=== PATIENT | female | born 1985 | race African-American/Black ===

== ENCOUNTER → 2018-06-11 10:33 | Outpatient (CLI) | payer OTHER, SELFPAY ==
[2018-06-11 10:48] LABS: RBC Urine None Seen (0-5/HPF); WBC Urine None Seen (0-5/HPF)
[2018-06-11 11:30] LABS: Add Manual Diff / Slide Review NO; Basophils Percent Auto 0.6 % (0-2); Eosinophils Percent Auto 0.8 % (2-4); Hematocrit 39.1 % (36-46); Lymphocytes Percent Auto 24.4 % (25-40); Mean Corpuscular HGB Conc 33.4 % (30-36); Mean Corpuscular Hemoglobin 27.1 PG (26-34); Mean Corpuscular Volume 81.1 fL (80-100); Monocytes Percent Auto 7.4 % (3-14); Neutrophils Absolute Auto 5100 /uL (3000-5900); Neutrophils Percent Auto 66.8 % (50-75); Platelet Count 254 X10^3/uL (150-400); Red Blood Cell Count 4.82 X10^6/uL (4.0-5.2); Red Cell Distribution Width 13.6 % (11.6-14.8); White Blood Cell Count 7.6 X10^3/uL (4.5-11.0)
[2018-06-11 12:18] LABS: Appearance Urine UA CLEAR; Bilirubin Urine UA NEGATIVE (NEGATIVE); Color Urine UA YELLOW; Glucose Urine UA NEGATIVE (Normal); Ketones Urine UA NEGATIVE (NEGATIVE); Leukocyte Esterase Urine UA NEGATIVE (NEGATIVE); Nitrite Urine UA Negative (Negative); Occult Blood Urine UA NEGATIVE (Negative); Protein Urine UA NEGATIVE (Negative); Urobilinogen Urine UA 0.2 E.U./dL (0.2)
[2018-06-11 12:36] LABS: Squamous Epithelial Cell Urine 1-5 /HPF
[2018-06-11 12:37] LABS: Bacteria Urine Occasional (0-1); Culture Indicated Urine Cult Not Indicated
== END ==
PROVIDERS: Visit Provider Obstetrics & Gynecology
DX: D25.9 Leiomyoma of uterus, unspecified (principal)
CPT/HCPCS: 36415; 81001; 85025; 86850; 86900; 86901

== ENCOUNTER 2018-06-13 11:23 | Inpatient (IN) | payer OTHER, SELFPAY ==
[2018-06-06 10:38] VITALS: BMI 32.6
[2018-06-13] VITALS (16 sets, daily range): BP systolic 107–123; BP diastolic 67–86; PULSE 56–88; RESP 10–19; TEMP 36.2–37.3; O2SAT 96–100; BMI 32.6
--- NOTE | 2018-06-13 | PATH_ITS ---
[facility] Accession Number: [id number] . 01 Material submitted: . UTERUS AND BILATERAL FALLOPIAN TUBES . 02 Diagnosis: Uterus and Bilateral Fallopian Tubes, Laparoscopic Assisted Vaginal Hysterectomy with Bilateral Salpingectomy (Weight 231 grams): Cervix with no diagnostic abnormality. Endocervix with no diagnostic abnormality. Proliferative endometrium; negative for glandular hyperplasia, cytologic atypia, and malignancy. Myometrium with no significant diagnostic abnormality. Serosa with multiple subserosal leiomyomas with diffuse hyalinization and calcification (2.5-3.5 cm in greatest dimension). Fallopian tubes x2 with no significant histomorphologic abnormality. [facility]/06/16/2018 . 02 Electronically signed: . Tonya Melendez MD, Pathologist NPI- [id number] . 01 Gross description: . Received in formalin, labeled uterus, bilateral fallopian tubes, is a uterus (231 grams, 4.8 cm AP, 11.2 cm SI, 6.2 cm ML) with attached fimbriated fallopian tubes (tube #1: length-6.8 cm, diameter-0.6 cm; tube #2: length-6.5 cm, diameter-0.5 cm). The ovaries are absent. The specimen cannot be oriented as to anterior and posterior. The cervix (3.2 cm AP, 4.0 cm ML) has a transverse os and patent endocervical canal. The endometrium (average thickness-0.1 cm) is gaston-pink smooth and flat. The myometrium is gaston-white and unremarkable. The serosa is gaston and contains multiple méndez-yellow solid firm focally mineralized subserosal nodules (2.5 x 1.5 x 1.5 cm-3.5 x 3.3 x 3.0 cm). The fallopian tubes have dark purple smooth and shiny serosa and gaston unremarkable lumens. Section code: (A1) cervix; (A2) cervix, opposite side; (A3-A5) endomyometrium and subserosal nodules, correspondence representative; (A6-A8) endomyometrium and subserosal nodules, opposite side, correspondence representative; (A9) fallopian tube #1, correspondence representative serial sections; (A10) fimbria #1, bivalved, entirely submitted; (A11) fallopian tube #2, correspondence representative serial sections; (A12) fimbria #2, bivalved, entirely submitted. ([id number]) /[facility] . 02 Pathologist provided ICD-10: D25.9 . 02 CPT . 172488 Performed at: 01 [facility] [address] [id number] MD Amaury Norris MD Phone: [phone] Performed at: 02 [facility] [address] [place], [place] [id number] MD Ryan Vergara MD Phone: [phone]
[2018-06-13] MEDS: LACTATED RINGERS 1,000 ML 42 ML IV (11:50)
--- NOTE | 2018-06-13 12:20 | SUR.PREOP ---
Pt ready for OR at this time. PIV in place, Nursing admission data base has been completed and SECURITY SCREENER has seen Pt. and children at the bedside. Awaiting Anesthesia and MD bedside assessment prior to taking Pt into OR Suite.
--- NOTE | 2018-06-13 12:28 | SUR.OPER ---
Lithotomy on padded OR bed. [place] Pad Positioner under torso. Head on pillow, arms padded and tucked at sides. Legs secured in padded yellow fins stirrups.
--- NOTE | 2018-06-13 12:41 | PM.PREOP ---
Pre-operative Note Interval Note Pre-op Check: Yes History & Physical Reviewed by Physician Changes: No
[2018-06-13] MEDS: CEFAZOLIN 2 GM/100 ML FROZ.PIGGY IV (12:45)
[2018-06-13] MEDS: BUPIVACAINE 0.25% (PF) VIAL 30 ML INJ (13:47)
[2018-06-13] MEDS: LIDOCAINE 1% W/EPI INJ 20 ML INJ (13:49)
[2018-06-13] MEDS: HYDROMORPHONE 2 MG INJ 0.5 MG IV ×2 (15:46→15:55)
--- NOTE | 2018-06-13 15:50 | SUR.PHASEI ---
pt gradually awake, co pain medicated with dilaudid.
--- NOTE | 2018-06-13 16:02 | SUR.PHASEI ---
1555 report attempted, rn not available awaiting call back.
--- NOTE | 2018-06-13 16:08 | SUR.PHASEI ---
called report again, rn now available, report given, pt transported [facility].
--- NOTE | 2018-06-13 16:27 | SUR.PHASEI ---
pt left ihn room under the care of trav quarles
--- NOTE | 2018-06-13 16:49 | PM.GYNOP.1 ---
Operative Date/Time/Diagnoses Date of procedure: 06/13/18 Time of procedure: 12:30 Pre-op diagnosis: Symptomatic fibroid uterus Post-op diagnosis: same Procedure: Procedures Operation Date: 06/13/18 12:30 Actual Procedures Side Surgeon p Laparoscopic Assisted Vag Hysterectomy w/Bilat Salpingectomy Raegan Boykin MD s Poss Total Abdominal Hysterectomy w/Bilateral Salpingectomy Raegan Boykin MD Indications: The patient is a 32-year-old 6 para 2 abortus 4 female here for hysterectomy for management of a symptomatic fibroid uterus. She recently transferred from [place] and was planning hysterectomy there but could not have surgery due to insurance concerns. Her primary concerns have been heavy menstrual cycles, with the 1st 2 days requiring tampon changes every 2 hr. She also has cramps with an intensity of 6/10, treated with 1 Naprosyn daily, and she notes lower abdominal pressure and pain, which seems to be exacerbated as her menstrual cycle approaches. She has completed her childbearing and desires hysterectomy for management of her symptomatic fibroid uterus. Pelvic ultrasound noted a midline fundal fibroid measuring 2.8 x 3.4 x 2.7 cm; a right lower segment fibroid measuring 4 x 3.5 x 3.5 cm; and a subserosal midbody fibroid measuring 2.5 x 2.5 x 2.3 cm the latter. The latter projects anterior on transabdominal images and posterior on the transvaginal images. The ovaries were notable for a 2 cm simple cyst on the right ovary. There were no other adnexal masses. After reviewing her management options for fibroid uterus, the patient desired hysterectomy. The risks, benefits, limitations, alternatives, and expectations of surgery were discussed, and the consent was reviewed and signed prior to the day of surgery. Surgeon: Raegan Boykin Amusement Ride Operator: Erlin Barone Anesthesia Type: General and Local (0.25 arcain, plain; 0.25 arcaine with epi) Operative Notes Findings: Exam under anesthesia: Enlarged fibroid uterus is palpable on bimanual exam. Multiple well-circumscribed masses were noted. A small amount of uterine descent was noted during bimanual exam. No adnexal masses were palpable. Operative findings: The uterus was enlarged with multiple fibroids. There appeared to be an intramural fibroid at the fundus measuring approximately 3-4 cm. There were 2 pedunculated, subserosal fibroids at the posterior aspect of the uterus measuring 2-3 cm each, 1 situated more to the right than the 1st. There was also a subserosal, pedunculated 2 cm fibroid anterior to the uterus, just above the bladder flap, which was adhesed to the peritoneum anteriorly. The ovaries and fallopian tubes were normal in appearance bilaterally. There was also a filmy adhesion of the right ascending colon to the right flank peritoneum. There was no endometriosis or other adhesions and the remainder of the abdominal survey was normal. The appendix is not seen. Closure Type: primary Specimen(s): left tube, right tube, uterus and other (Cervix) Applied: catheter Estimated blood loss (mL): 300 Blood products transfused: none Procedure in detail: The patient was taken to the operating room, where general endotracheal anesthesia was administered without complications. The patient was placed into the low dorsal lithotomy position with her lower extremities in Yellofin stirrups. Exam under anesthesia was then performed with the findings noted above. Although minimal descent of the uterus was noted, the decision was made to proceed with a laparoscopic-assisted vaginal hysterectomy initially, and then proceed with abdominal hysterectomy if needed. Perineum, vagina, and abdomen were then prepped and draped in a sterile fashion. A Oliver catheter was then placed. Procedure time-out was then performed. Attention was first turned to the perineum for placement of the uterine manipulator. A sterile bivalve speculum was inserted into the vagina, then the anterior lip of the cervix was grasped with a single-tooth tenaculum. A ZUMI uterine manipulator was then advanced without need for cervical dilation. The balloon was inflated, then the tenaculum and speculum removed from the vagina. Local anesthetic was then injected infraumbilically using 0.25% Marcaine plain. A vertical skin incision was then made with a scalpel below the umbilicus measuring approximately 7 mm in length. The abdominal wall was then grasped and tented up while a Veress needle was inserted through the incision. Saline drop test was suggestive of intraperitoneal placement. Carbon dioxide gas insufflation was then performed with appropriate opening pressures noted. After instilling approximately 2 L of carbon dioxide, a 5 mm 0 degree laparoscope within a 5 mm trocar was inserted through the anterior layers of the abdominal wall using Optiview technique. The abdomen and pelvis were visualized with the findings as noted above. The patient was placed into Trendelenburg position for better visualization. A second and third trocar was inserted at the patient's lower quadrants. These were done by first instilling local anesthetic, then incising the skin and inserting a 5 mm trocar under direct visualization using the laparoscopic. An atraumatic grasper was then utilized to manipulate the tissue and improve visualization throughout the pelvis. Attention was 1st turned to dissection of the adhesion from the anterior fibroid to the anterior peritoneum. This was dissected using the PlasmaKinetic. Gentle traction was then applied on the left distal fallopian tube which was pulled medially and superiorly. The left tubo-ovarian pedicle was then cross-clamped, cauterized, and cut using the Olympus PlasmaKinetic, and the left mesosalpinx dissected to separate the left tube from the ovary. The left round ligament was then cross clamped, cauterized, and cut. Residual bleeding was controlled with Bovie cautery. The anterior leaf of the broad ligament was undermined with the PlasmaKinetic and the left aspect of the bladder flap created using Bovie cautery. The left utero-ovarian pedicle was then cross clamped, cauterized, and cut, freeing the left ovary from the uterus. Some residual para uterine tissue was freed with Bovie cautery and gentle traction, skeletonizing the left uterine vessels. The left uterine vein and artery were then cross clamped, cauterized, and cut, and additional cautery applied as needed to achieve hemostasis. Attention was then turned to the patient's right adnexa. The right distal fallopian tube was grasped and tented up while the right tubo-ovarian pedicle was cross clamped, cauterized, and cut. This incision was then extended and medially across the right mesosalpinx. The right round ligament was then cross clamped, cauterized, and cut and the right anterior leaf of the broad ligament was undermined with the PlasmaKinetic to create the right side of the bladder flap using Bovie cautery. This incision was extended to the midline, meeting the bladder dissection from the left side. The right utero-ovarian pedicle was cross clamped, cauterized, and cut, freeing the right ovary from the uterus. The right uterine vessels were then skeletonized, cross clamped cauterized, and cut. Additional cautery was applied as needed to achieve hemostasis. The pelvis was then irrigated and suctioned. Once hemostasis was ensured, attention was turned to the perineum for the vaginal portion of the case. Instruments were removed from the abdomen, leaving the trocars in place. The majority of the carbon dioxide gas was allowed to escape. The uterine manipulator was removed. A sterile weighted speculum was placed in the posterior vagina and a Swanton placed in the anterior vagina. The cervix was grasped with double tooth tenaculum, then local with epinephrine was injected circumferentially for hemostasis. A circumferential incision was then made with Bovie cautery. Using blunt dissection with the stile ripsaw operator's finger, the vaginal mucosa was gently pushed back off the cervix, better visualizing the plane for the anterior and posterior peritoneal entry. The posterior peritoneum was grasped and incised sharply using Metzenbaum scissors. The Auvard speculum was then inserted into the posterior peritoneum. The anterior peritoneum was then bluntly entered using push with the stile ripsaw operator's finger and a moistened lap sponge. The Igor was then replaced. The left uterosacral ligament was cross clamped with a Mathew clamp then cut and suture ligated with an 0 Vicryl suture in a Mathew stitch fashion. This was tagged for later identification. This step was performed on the right uterosacral ligament clamped then cut and suture ligated with an 0 Vicryl suture. The right cardinal and inferior uterine vessels were then cross clamped with the Mathew clamp cut and suture ligated with an 0 Vicryl suture. This step was then performed on the patient's left cardinal and uterine vessels as well. The uterus and bilateral fallopian tubes were then removed through the vagina. The pedicles were inspected. Some residual bleeding at the cuff on the right was controlled with cautery. A bleeding pedicle on the right was secured with a [id number] suture of 0-Vicryl. Additionally, so bleeding at the posterior cuff was controlled with cautery. The peritoneum was then closed with a pursestring suture of 0 Vicryl, starting anteriorly at the bladder peritoneum, including both uterosacral ligaments and skiving across the posterior peritoneum. This was tied down, then the vagina was irrigated with sterile saline. The vaginal mucosa was then closed with serial [id number] sutures of 0 Vicryl. A sponge-stick was then placed into the vagina. Carbon dioxide gas was then reinflated into the abdomen, and the pelvis visualized. The cuff was irrigated and suctioned. Some residual bleeding anterior to and at the right aspect of the cuff was controlled with Bovie cautery. The ovaries were examined and no residual bleeding was noted. At this point the laparoscopic portion of the procedure was deemed complete. The carbon dioxide gas was allowed to escape and the trocars removed from the abdomen. The trocar sites were then closed with 4-0 Monocryl in a subcuticular fashion. Exofin skin glue was then applied. The sponge-stick was then removed from the vagina. At this point the procedure was deemed complete. Sponge, lap, and needle count were correct x3. The patient was subsequently awakened, extubated, and transferred to the PACU in stable condition. Complications: none Post-operative Condition: stable Disposition: Acute Care Plan for aftercare: See discharge instruction.
--- NOTE | 2018-06-13 17:08 | P.OP_ITS ---
Operative Date/Time/Diagnoses Date of procedure: 06/13/18 Time of procedure: 12:30 Pre-op diagnosis: Symptomatic fibroid uterus Post-op diagnosis: same Procedure: Procedures Operation Date: 06/13/18 12:30 Actual Procedures Side Surgeon p Laparoscopic Assisted Vag Hysterectomy w/Bilat Salpingectomy Raegan Boykin MD s Poss Total Abdominal Hysterectomy w/Bilateral Salpingectomy Raegan Boykin MD Indications: The patient is a 32-year-old 6 para 2 abortus 4 female here for hysterectomy for management of a symptomatic fibroid uterus. She recently transferred from [place] and was planning hysterectomy there but could not have surgery due to insurance concerns. Her primary concerns have been heavy menstrual cycles, with the 1st 2 days requiring tampon changes every 2 hr. She also has cramps with an intensity of 6/10, treated with 1 Naprosyn daily, and she notes lower abdominal pressure and pain, which seems to be exacerbated as her menstrual cycle approaches. She has completed her childbearing and desires hysterectomy for management of her symptomatic fibroid uterus. Pelvic ultrasound noted a midline fundal fibroid measuring 2.8 x 3.4 x 2.7 cm; a right lower segment fibroid measuring 4 x 3.5 x 3.5 cm; and a subserosal midbody fibroid measuring 2.5 x 2.5 x 2.3 cm the latter. The latter projects anterior on transabdominal images and posterior on the transvaginal images. The ovaries were notable for a 2 cm simple cyst on the right ovary. There were no other adnexal masses. After reviewing her management options for fibroid uterus, the patient desired hysterectomy. The risks, benefits, limitations, alternatives, and expectations of surgery were discussed, and the consent was reviewed and signed prior to the day of surgery. Surgeon: Raegan Boykin Furnace Repair Mechanic: Erlin Barone Anesthesia Type: General and Local (0.25* arcain, plain; 0.25* arcaine with epi) Operative Notes Findings: Exam under anesthesia: Enlarged fibroid uterus is palpable on bimanual exam. Multiple well-circumscribed masses were noted. A small amount of uterine descent was noted during bimanual exam. No adnexal masses were palpable. Operative findings: The uterus was enlarged with multiple fibroids. There appeared to be an intramural fibroid at the fundus measuring approximately 3-4 cm. There were 2 pedunculated, subserosal fibroids at the posterior aspect of the uterus measuring 2-3 cm each, 1 situated more to the right than the 1st. There was also a subserosal, pedunculated 2 cm fibroid anterior to the uterus, just above the bladder flap, which was adhesed to the peritoneum anteriorly. The ovaries and fallopian tubes were normal in appearance bilaterally. There was also a filmy adhesion of the right ascending colon to the right flank peritoneum. There was no endometriosis or other adhesions and the remainder of the abdominal survey was normal. The appendix is not seen. Closure Type: primary Specimen(s): left tube, right tube, uterus and other (Cervix) Applied: catheter Estimated blood loss (mL): 300 Blood products transfused: none Procedure in detail: The patient was taken to the operating room, where general endotracheal anesthesia was administered without complications. The patient was placed into the low dorsal lithotomy position with her lower extremities in Yellofin stirrups. Exam under anesthesia was then performed with the findings noted above. Although minimal descent of the uterus was noted, the decision was made to proceed with a laparoscopic-assisted vaginal hysterectomy initially , and then proceed with abdominal hysterectomy if needed. Perineum, vagina, and abdomen were then prepped and draped in a sterile fashion. A Oliver catheter was then placed. Procedure time-out was then performed. Attention was first turned to the perineum for placement of the uterine manipulator. A sterile bivalve speculum was inserted into the vagina, then the anterior lip of the cervix was grasped with a single-tooth tenaculum. A ZUMI uterine manipulator was then advanced without need for cervical dilation. The balloon was inflated, then the tenaculum and speculum removed from the vagina. Local anesthetic was then injected infraumbilically using 0.25% Marcaine plain. A vertical skin incision was then made with a scalpel below the umbilicus measuring approximately 7 mm in length. The abdominal wall was then grasped and tented up while a Veress needle was inserted through the incision. Saline drop test was suggestive of intraperitoneal placement. Carbon dioxide gas insufflation was then performed with appropriate opening pressures noted. After instilling approximately 2 L of carbon dioxide, a 5 mm 0 degree laparoscope within a 5 mm trocar was inserted through the anterior layers of the abdominal wall using Optiview technique. The abdomen and pelvis were visualized with the findings as noted above. The patient was placed into Trendelenburg position for better visualization. A second and third trocar was inserted at the patient' s lower quadrants. These were done by first instilling local anesthetic, then incising the skin and inserting a 5 mm trocar under direct visualization using the laparoscopic. An atraumatic grasper was then utilized to manipulate the tissue and improve visualization throughout the pelvis. Attention was 1st turned to dissection of the adhesion from the anterior fibroid to the anterior peritoneum. This was dissected using the PlasmaKinetic. Gentle traction was then applied on the left distal fallopian tube which was pulled medially and superiorly. The left tubo-ovarian pedicle was then cross-clamped, cauterized, and cut using the Olympus PlasmaKinetic, and the left mesosalpinx dissected to separate the left tube from the ovary. The left round ligament was then cross clamped, cauterized, and cut. Residual bleeding was controlled with Bovie cautery. The anterior leaf of the broad ligament was undermined with the PlasmaKinetic and the left aspect of the bladder flap created using Bovie cautery. The left utero-ovarian pedicle was then cross clamped, cauterized, and cut, freeing the left ovary from the uterus. Some residual para uterine tissue was freed with Bovie cautery and gentle traction, skeletonizing the left uterine vessels. The left uterine vein and artery were then cross clamped, cauterized, and cut, and additional cautery applied as needed to achieve hemostasis. Attention was then turned to the patient's right adnexa. The right distal fallopian tube was grasped and tented up while the right tubo-ovarian pedicle was cross clamped, cauterized, and cut. This incision was then extended and medially across the right mesosalpinx. The right round ligament was then cross clamped, cauterized, and cut and the right anterior leaf of the broad ligament was undermined with the PlasmaKinetic to create the right side of the bladder flap using Bovie cautery. This incision was extended to the midline, meeting the bladder dissection from the left side. The right utero-ovarian pedicle was cross clamped, cauterized, and cut, freeing the right ovary from the uterus. The right uterine vessels were then skeletonized, cross clamped cauterized, and cut. Additional cautery was applied as needed to achieve hemostasis. The pelvis was then irrigated and suctioned. Once hemostasis was ensured, attention was turned to the perineum for the vaginal portion of the case. Instruments were removed from the abdomen , leaving the trocars in place. The majority of the carbon dioxide gas was allowed to escape. The uterine manipulator was removed. A sterile weighted speculum was placed in the posterior vagina and a Igor placed in the anterior vagina. The cervix was grasped with double tooth tenaculum, then local with epinephrine was injected circumferentially for hemostasis. A circumferential incision was then made with Bovie cautery. Using blunt dissection with the desktop operator's finger, the vaginal mucosa was gently pushed back off the cervix, better visualizing the plane for the anterior and posterior peritoneal entry. The posterior peritoneum was grasped and incised sharply using Metzenbaum scissors. The Auvard speculum was then inserted into the posterior peritoneum. The anterior peritoneum was then bluntly entered using push with the desktop operator's finger and a moistened lap sponge. The [place] was then replaced. The left uterosacral ligament was cross clamped with a Mathew clamp then cut and suture ligated with an 0 Vicryl suture in a Mathew stitch fashion. This was tagged for later identification. This step was performed on the right uterosacral ligament clamped then cut and suture ligated with an 0 Vicryl suture. The right cardinal and inferior uterine vessels were then cross clamped with the Mathew clamp cut and suture ligated with an 0 Vicryl suture. This step was then performed on the patient's left cardinal and uterine vessels as well. The uterus and bilateral fallopian tubes were then removed through the vagina. The pedicles were inspected. Some residual bleeding at the cuff on the right was controlled with cautery. A bleeding pedicle on the right was secured with a [id number] suture of 0-Vicryl. Additionally, so bleeding at the posterior cuff was controlled with cautery. The peritoneum was then closed with a pursestring suture of 0 Vicryl, starting anteriorly at the bladder peritoneum, including both uterosacral ligaments and skiving across the posterior peritoneum. This was tied down, then the vagina was irrigated with sterile saline. The vaginal mucosa was then closed with serial [id number]-yn-[id number] sutures of 0 Vicryl. A sponge-stick was then placed into the vagina. Carbon dioxide gas was then reinflated into the abdomen, and the pelvis visualized. The cuff was irrigated and suctioned. Some residual bleeding anterior to and at the right aspect of the cuff was controlled with Bovie cautery. The ovaries were examined and no residual bleeding was noted. At this point the laparoscopic portion of the procedure was deemed complete. The carbon dioxide gas was allowed to escape and the trocars removed from the abdomen. The trocar sites were then closed with 4-0 Monocryl in a subcuticular fashion. Exofin skin glue was then applied. The sponge-stick was then removed from the vagina. At this point the procedure was deemed complete. Sponge, lap, and needle count were correct x3. The patient was subsequently awakened, extubated, and transferred to the PACU in stable condition. Complications: none Post-operative Condition: stable Disposition: Acute Care Plan for aftercare: See discharge instruction.
[2018-06-13] MEDS: OXYCODONE/ACETAMINOPHEN 5/325 TABLET 2 TAB PO ×3 (17:13→22:01)
[2018-06-13] MEDS: LACTATED RINGERS 1,000 ML 100 ML IV (17:14)
[2018-06-13] MEDS: KETOROLAC 30 MG/ML VIAL IV (18:51)
--- NOTE | 2018-06-13 19:41 | PC.NURSE ---
Addendum entered by Brooke Nielsen R.N. 06/13/18 19:45: 1830- Pain remains at 5-6/10, medicated with one tab percocet, and ketorolac 30mg IVP, effective. Original Note: Addendum entered by Brooke Nielsen R.N. 06/13/18 19:45: 1715- Pain 6/10, medicated with one tab percocet per pt request. Original Note: 1700- Pt arrived to room 206 from PACU via bed. A/O x3, 97% RA, LS clear, denies SOB. RFA LR @ 100. Pain 3/10 at this time. vincent pad clean no shadow drainage, 3 lap sites umbilicus, left/right side, dermabond CDI. and 2 sons in room. tolerating regular diet and fluids, denies nausea. Oliver patent and draining clear yellow urine. Call light in reach.
[2018-06-14] MEDS: OXYCODONE/ACETAMINOPHEN 5/325 TABLET 2 TAB PO (02:22)
[2018-06-14] MEDS: LACTATED RINGERS 1,000 ML 100 ML IV (03:05)
[2018-06-14 04:19] VITALS: BP 113/64; PULSE 54; RESP 18; TEMP 37.1; O2SAT 98
--- NOTE | 2018-06-14 04:45 | PC.NURSE ---
Addendum entered by Emani Miller R.N. 06/14/18 05:26: DC Oliver catheter at 0500. Pt tolerated well. Educated pt s/s of possible infection. Encouraged to continue oral fluid intake Original Note: shift note AOx3. RA 98%. Oliver clear and yellow. Peripad clean and dry, no drainage. Lap sites CDI. Pt reported pain of 4 at 0220. Provided pt 2 percocet tabs over tordal due to 2 percocet being effective earlier in evening for pt. Discussed alternative pain options with pt. Call light in reach.
[2018-06-14 05:41] LABS: Add Manual Diff / Slide Review NO; Basophils Percent Auto 0.3 % (0-2); Eosinophils Percent Auto 0.3 % (2-4); Hematocrit 37.4 % (36-46); Hemoglobin 12.4 g/dL (12.0-16.0); Lymphocytes Percent Auto 18.3 % (25-40); Mean Corpuscular HGB Conc 33.1 % (30-36); Mean Corpuscular Volume 81.5 fL (80-100); Monocytes Percent Auto 9.4 % (3-14); Neutrophils Absolute Auto 9200 /uL (3000-5900); Neutrophils Percent Auto 71.7 % (50-75); Platelet Count 246 X10^3/uL (150-400); Red Blood Cell Count 4.59 X10^6/uL (4.0-5.2); Red Cell Distribution Width 13.8 % (11.6-14.8); White Blood Cell Count 12.8 X10^3/uL (4.5-11.0)
[2018-06-14 05:52] LABS: BUN Creatinine Ratio 8.8 (6-22); Blood Urea Nitrogen 7 mg/dL (7-17); Calcium 9.3 mg/dL (8.4-10.2); Carbon Dioxide 28 mmol/L (22-32); Chloride 103 mmol/L (98-107); Estimated Glomerular Filt Rate > 60.0 mL/min (>60); Glucose 96 mg/dL (70-100); HEMOLYSIS < 15 (0-50); Potassium 4.5 mmol/L (3.4-5.1); Sodium 138 mmol/L (137-145)
[2018-06-14] MEDS: KETOROLAC 30 MG/ML VIAL IV (06:43)
--- NOTE | 2018-06-14 06:56 | P.DS_ITS ---
Discharge Providers Date of admission: 06/13/18 11:23 Discharge provider: Raegan Boykin MD Summary Date Patient Seen: 06/14/18 Time Patient Seen: 06:54 Hospital Course: After an uncomplicated laparoscopic-assisted vaginal hysterectomy with bilateral salpingectomies, the patient was admitted to the PACU and then the perry in stable condition. Overnight she had no acute events. Pain was fairly controlled with Toradol and Percocet as needed. However, she does note some lower abdominal pain similar to a severe menstrual cramping. She denies any nausea or vomiting. She has been up and ambulating without any lightheadedness or dizziness. Oliver catheter was removed this morning, and she has not yet met her due to void. She feels ready for discharge home today. She has had normal vital signs and has been afebrile. Time Spent with Patient Total time spent providing and/or coordinating discharge services: Objective Labs Result Diagrams: 06/14/18 05:17 06/14/18 05:17 Labs: Laboratory Results - last 24 hr 06/14/18 06/14/18 05:17 05:17 WBC 12.8 H RBC 4.59 Hgb 12.4 Hct 37.4 MCV 81.5 MCH 27.0 MCHC 33.1 RDW 13.8 Plt Count 246 Neut % (Auto) 71.7 Lymph % (Auto) 18.3 L [place] % (Auto) 9.4 Eos % (Auto) 0.3 L Baso % (Auto) 0.3 Neut # (Auto) 9200 H Sodium 138 Potassium 4.5 Chloride 103 Carbon Dioxide 28 BUN 7 Creatinine 0.80 Estimated GFR > 60.0 BUN/Creatinine Ratio 8.8 Glucose 96 Calcium 9.3 Discharge Plan Discharge Plan Patient Disposition: Home Discharge comment: Follow-Up with Dr. Boykin [id number] at 1040 Discharge medications: resume below; also, motrin 800 mg orally every 8 hrs as needed for pain; Percocet 2 tabs orally every 6 hr as needed for pain; and surfak 240 mg orally twice daily as needed for constipation. Discharge Med Rec/Prescriptions Prescriptions: No Action multivitamin Tablet 1 tab PO DAILY RF: 0 triamcinolone acetonide 0.025 % Cream 1 applic TOPICAL BID RF: 0 montelukast 10 mg Tablet 10 mg PO DAILY RF: 0 fluticasone [Flonase Allergy Relief] 50 mcg/actuation [place],Suspension 2 spray INTRANASAL BID RF: 0 loratadine [Claritin] 10 mg Tablet 10 mg PO DAILY RF: 0 Provider Discharge Instructions Activity: See handout Cold/Heat Therapy: Heat prn pain Oxygen: None Other treatments: Incision care: May shower; monitor for redness, opening, or discharge. Skin/Wound/Dressing Care Report to your healthcare provider any signs of infection, such as:: chills, fever, night sweats, increased pain and unusual drainage Dressing: None Other wound treatment: As above Visit Report/Discharge Packet Instructions: DI for Hysterectomy, DI for Vaginal Hysterectomy Visit Report Forms: Stroke Signs & Symptoms Print Language: Uzbek Discharge Data Attending Provider: Raegan Boykin Admit Date/Time: 06/13/18 11:23 Discharges patient from system. Discharge Date/Time: 06/14/18 11:00
--- NOTE | 2018-06-14 06:56 | PM.DS.1 ---
History of Present Illness Date Patient Seen: 06/14/18 Time Patient Seen: 06:57 Chief complaint: bilateral salipingectomies possible [id number] Narrative: After an uncomplicated laparoscopic assisted vaginal hysterectomy, the patient was admitted to the PACU and then the perry in stable condition. Overnight she had no acute events. Pain was fairly controlled with Toradol and oral Percocet as needed. However she does note pain in the lower quadrants similar to severe menstrual cramping. She has been afebrile with normal stable vital signs. She denies any nausea or vomiting and has been tolerating a regular diet. She has been up and ambulating in the room without any lightheadedness or dizziness. Oliver catheter was removed this morning. She has not yet met her due to void. Discharge Providers Date of admission: 06/13/18 11:23 Discharge provider: Raegan Boykin MD Summary Discharge Diagnosis: Symptomatic fibroid uterus, now status post laparoscopic-assisted vaginal hysterectomy with bilateral salpingectomies Hospital Course: Patient had uncomplicated postoperative course. She was discharged on postoperative day 1. Once she was ambulating, tolerating regular diet, voiding freely, and controlling pain with oral pain medications. She had normal stable vital signs during hospital stay. Status at Discharge Cognitive/behavioral status at discharge: Appropriate cognitive behavior or discharge. Functional status at discharge: independent ambulation Overall status at discharge: patient is back to baseline Time Spent with Patient Less than 30 minutes Exam Vital Signs (past 8 hours): - 06/13/18 23:00 06/13/18 23:51 06/14/18 04:19 Temperature 98.6 F 98.8 F Pulse Rate 56 L 54 L Respiratory Rate 18 18 Blood Pressure 107/67 113/64 Pulse Oximetry 99 99 98 Oxygen Delivery Method Room Air Oxygen Flow Rate 0 Narrative Exam Narrative: General: The patient is sitting up in bed. She is alert and oriented x3 in no apparent distress. Abdomen: Soft, appropriately tender over the lower quadrants. Incisions: Laparoscopy incisions healing well x3. There is no erythema, induration, separation, or discharge. There is also no bruising evident this time. Extremities: Warm and well perfused with no clubbing, cyanosis, or edema. Objective Labs Result Diagrams: 06/14/18 05:17 06/14/18 05:17 Labs: Laboratory Results - last 24 hr 06/14/18 06/14/18 05:17 05:17 WBC 12.8 H RBC 4.59 Hgb 12.4 Hct 37.4 MCV 81.5 MCH 27.0 MCHC 33.1 RDW 13.8 Plt Count 246 Neut % (Auto) 71.7 Lymph % (Auto) 18.3 L [place] % (Auto) 9.4 Eos % (Auto) 0.3 L Baso % (Auto) 0.3 Neut # (Auto) 9200 H Sodium 138 Potassium 4.5 Chloride 103 Carbon Dioxide 28 BUN 7 Creatinine 0.80 Estimated GFR > 60.0 BUN/Creatinine Ratio 8.8 Glucose 96 Calcium 9.3 Discharge Plan Discharge Plan Patient Disposition: Home, Self-Care Discharge comment: Follow-Up with Dr. Boykin [id number] at 1040 Discharge medications: resume below; also, motrin 800 mg orally every 8 hrs as needed for pain; Percocet 2 tabs orally every 6 hr as needed for pain; and surfak 240 mg orally twice daily as needed for constipation. Discharge Med Rec/Prescriptions Prescriptions: No Action multivitamin Tablet 1 tab PO DAILY RF: 0 triamcinolone acetonide 0.025 % Cream 1 applic TOPICAL BID RF: 0 montelukast 10 mg Tablet 10 mg PO DAILY RF: 0 fluticasone [Flonase Allergy Relief] 50 mcg/actuation [place],Suspension 2 spray INTRANASAL BID RF: 0 loratadine [Claritin] 10 mg Tablet 10 mg PO DAILY RF: 0 Provider Discharge Instructions Diet: Regular Activity: See handout Cold/Heat Therapy: Heat prn pain Oxygen: None Other treatments: Incision care: May shower; monitor for redness, opening, or discharge. Wound Care Report to your healthcare provider any signs of infection, such as:: chills, fever, night sweats, increased pain and unusual drainage Dressing: None Other wound treatment: As above Visit Report/Discharge Packet Print Language: Belarusian Discharge Data Attending Provider: Raegan Boykin Admit Date/Time: 06/13/18 11:23 Quality VTE Deep Vein Thrombosis/Pulmonary Embolism Present on Admission: No
--- NOTE | 2018-06-14 07:04 | P.DS_ITS ---
History of Present Illness Date Patient Seen: 06/14/18 Time Patient Seen: 06:57 Chief complaint: bilateral salipingectomies possible [id number] Narrative: After an uncomplicated laparoscopic assisted vaginal hysterectomy, the patient was admitted to the PACU and then the perry in stable condition. Overnight she had no acute events. Pain was fairly controlled with Toradol and oral Percocet as needed. However she does note pain in the lower quadrants similar to severe menstrual cramping. She has been afebrile with normal stable vital signs. She denies any nausea or vomiting and has been tolerating a regular diet. She has been up and ambulating in the room without any lightheadedness or dizziness. Oliver catheter was removed this morning. She has not yet met her due to void. Discharge Providers Date of admission: 06/13/18 11:23 Discharge provider: Raegan Boykin MD Summary Discharge Diagnosis: Symptomatic fibroid uterus, now status post laparoscopic- assisted vaginal hysterectomy with bilateral salpingectomies Hospital Course: Patient had uncomplicated postoperative course. She was discharged on postoperative day 1. Once she was ambulating, tolerating regular diet, voiding freely, and controlling pain with oral pain medications. She had normal stable vital signs during hospital stay. Status at Discharge Cognitive/behavioral status at discharge: Appropriate cognitive behavior or discharge. Functional status at discharge: independent ambulation Overall status at discharge: patient is back to baseline Time Spent with Patient Less than 30 minutes Exam Vital Signs (past 8 hours): - 06/13/18 23:00 06/13/18 23:51 06/14/18 04:19 Temperature 98.6 F 98.8 F Pulse Rate 56 L 54 L Respiratory Rate 18 18 Blood Pressure 107/67 113/64 Pulse Oximetry 99 99 98 Oxygen Delivery Method Room Air Oxygen Flow Rate 0 Narrative Exam Narrative: General: The patient is sitting up in bed. She is alert and oriented x3 in no apparent distress. Abdomen: Soft, appropriately tender over the lower quadrants. Incisions: Laparoscopy incisions healing well x3. There is no erythema, induration, separation, or discharge. There is also no bruising evident this time. Extremities: Warm and well perfused with no clubbing, cyanosis, or edema. Objective Labs Result Diagrams: 06/14/18 05:17 06/14/18 05:17 Labs: Laboratory Results - last 24 hr 06/14/18 06/14/18 05:17 05:17 WBC 12.8 H RBC 4.59 Hgb 12.4 Hct 37.4 MCV 81.5 MCH 27.0 MCHC 33.1 RDW 13.8 Plt Count 246 Neut % (Auto) 71.7 Lymph % (Auto) 18.3 L [place] % (Auto) 9.4 Eos % (Auto) 0.3 L Baso % (Auto) 0.3 Neut # (Auto) 9200 H Sodium 138 Potassium 4.5 Chloride 103 Carbon Dioxide 28 BUN 7 Creatinine 0.80 Estimated GFR > 60.0 BUN/Creatinine Ratio 8.8 Glucose 96 Calcium 9.3 Discharge Plan Discharge Plan Patient Disposition: Home, Self-Care Discharge comment: Follow-Up with Dr. Boykin [id number] at 1040 Discharge medications: resume below; also, motrin 800 mg orally every 8 hrs as needed for pain; Percocet 2 tabs orally every 6 hr as needed for pain; and surfak 240 mg orally twice daily as needed for constipation. Discharge Med Rec/Prescriptions Prescriptions: No Action multivitamin Tablet 1 tab PO DAILY RF: 0 triamcinolone acetonide 0.025 % Cream 1 applic TOPICAL BID RF: 0 montelukast 10 mg Tablet 10 mg PO DAILY RF: 0 fluticasone [Flonase Allergy Relief] 50 mcg/actuation [place],Suspension 2 spray INTRANASAL BID RF: 0 loratadine [Claritin] 10 mg Tablet 10 mg PO DAILY RF: 0 Provider Discharge Instructions Diet: Regular Activity: See handout Cold/Heat Therapy: Heat prn pain Oxygen: None Other treatments: Incision care: May shower; monitor for redness, opening, or discharge. Wound Care Report to your healthcare provider any signs of infection, such as:: chills, fever, night sweats, increased pain and unusual drainage Dressing: None Other wound treatment: As above Visit Report/Discharge Packet Print Language: Telugu Discharge Data Attending Provider: Raegan Boykin Admit Date/Time: 06/13/18 11:23 Quality VTE Deep Vein Thrombosis/Pulmonary Embolism Present on Admission: No
[2018-06-14 07:35] VITALS: BP 106/67; PULSE 57; RESP 15; TEMP 36.6; O2SAT 100
[2018-06-14 08:45] VITALS: O2SAT 100
--- NOTE | 2018-06-14 10:35 | PC.NURSE ---
discharge- pt states pain controlled with toradol. Percocet doesn't work very well for her, unfortunately this is med she has at home for pain control. She feels like she will be ok with ibuprofen only but will try percocet again at home and call MD if pain not controlled. pt states she is taking all items home with her. No d/c R/x as pt has them at home already prior to coming to hospital. pt able to urinate 300 ml after perez removed, d/c criteria met. pt left with hospital escort to in the car.
== END 2018-06-14 11:00 | disposition home or self-care (01) | DRG 743 ==
PROVIDERS: Admitting Provider Obstetrics & Gynecology; Visit Provider Obstetrics & Gynecology
PROC: 0UT9FZZ Resection of Uterus, Via Natural or Artificial Opening With Percutaneous Endoscopic Assistance (ICD-10-PCS; principal; 2018-06-13 12:30)
DX: D25.1 Intramural leiomyoma of uterus (principal); D25.2 Subserosal leiomyoma of uterus
CPT/HCPCS: 36415; 80048; 85025; 88307; J0131; J0690; J1100; J1170; J1885; J2250; J2405; J2704; J3010

== ENCOUNTER 2019-09-26 09:27 | Emergency (ER) | payer OTHER, SELFPAY ==
[2019-09-26 09:27] VITALS: BMI 32.6
--- NOTE | 2019-09-26 09:35 | ED_ITS ---
HPI - General Adult General Chief complaint: Upper Respiratory Symptoms Stated complaint: fever/poss strep/cant keep anything down Time Seen by Provider: 09/26/19 09:34 Source: patient Mode of arrival: Ambulatory Limitations: no limitations History of Present Illness HPI narrative: Otherwise healthy 34-year-old female here for evaluation of sore throat, fevers, cough, sinus congestion, pain with swallowing, nausea, for the past several days. 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 Is on allergy medications. Related Data Home Medications Medication Instructions Recorded Confirmed fluticasone propionate [Flonase 2 spray INTRANASAL BID 06/06/18 06/13/18 Allergy Relief] loratadine [Claritin] 10 mg PO DAILY 06/06/18 06/13/18 montelukast 10 mg PO DAILY 06/06/18 06/13/18 multivitamin 1 tab PO DAILY 06/06/18 06/13/18 triamcinolone acetonide 1 applic TOPICAL BID 06/06/18 06/13/18 Previous Rx's Medication Instructions Recorded azithromycin See Rx Instructions .ROUTE 09/26/19 .COMPLEX #6 tab Allergies Allergy/AdvReac Type Severity Reaction Status Date / Time Penicillins Allergy Unknown Hives Verified 06/06/18 09:01 zolpidem [From Ambien] Allergy Unknown Facial Verified 06/06/18 09:01 Swelling environmental allergies Allergy Unknown Unknown Uncoded 06/06/18 11:38 Red Meat AdvReac Unknown Vomiting Uncoded 06/06/18 10:43 Review of Systems Constitutional Constitutional: Reports fever(s) Eyes Eyes: Denies eye discharge ENT Ears, Nose, Mouth, and Throat: Reports hoarseness, Reports neck pain, Denies pos t nasal drip, Denies tinnitus, Denies sinus pain, Reports sinus pressure, Reports sore throat, Reports throat swelling and Denies tongue swelling Cardiovascular Cardiovascular: Denies chest pain and Denies dyspnea Respiratory Respiratory: Denies dyspnea Gastrointestinal Gastrointestinal: Denies abdominal pain, Reports nausea and Denies vomiting Musculoskeletal Musculoskeletal: Reports neck pain Integumentary/Breasts Skin/Breast: Denies lesions and Denies rash Neurologic Neurologic: Denies burning sensations and Denies confusion Psychiatric Psychiatric: Denies confusion Hematologic/Lymphatic Hematologic/Lymphatic: Denies easy bleeding and Denies easy bruising Allergic/Immunologic Allergic/Immunologic: Reports throat swelling and Denies tongue swelling Patient History Medical History Chronic neck pain (Acute) Depression (Acute) Fibroid, uterine (Acute) History of chest pain (Acute) History of headache (Acute) History of UTI (Acute) Hypertension affecting (Acute) Large breasts (Acute) Shoulder region pain (Acute) Social History household members: spouse and children Smoking Status: Never smoker alcohol intake: current Substance Use Type: does not use Exam Const General: cooperative, comfortable and well developed Orientation: alert, awake and oriented x3 HENMT Head: normal to inspection and normocephalic Ears: other (Bilateral TMs bulging) Mouth: oral mucosae normal Throat: uvula midline and other (Erythematous oropharynx) Neck Lymphatic: lymphadenopathy Resp Effort & Inspection: normal respiratory effort Auscultation: clear to auscultation bilaterally Skin Lesions: no lesions Rashes: no rashes Neuro General: alert and awake Cognition: normal cognition Speech: speech normal Extrem General: normal to inspection and capillary refill normal Psych Appearance: grossly normal and well kempt Medical Decision Making Lab Data Lab results reviewed: Yes I reviewed the patient's lab results. Labs: Point of Care Testing Rapid Strep A Negative Point of care testing: Point of Care Testing Rapid Strep A Negative MDM Narrative Medical decision making narrative: Patient's rapid strep is negative however she has had a fever, sore throat, lymphadenopathy for the past 3 days and has also had positive exposure to strep. I did discuss this with her. She is going to continue with the allergy medications such as Claritin. She also has Flonase which she will take. I will send her home with a prescription for antibiotics. Informed her that she could either wait for the next couple days to see if her symptoms improve and if they do not or if her symptoms worsen start taking the antibiotics or she could start taking them immediately. I do not feel this is unreasonable. She was given return precautions and follow-up instructions. She expressed understanding and agreement with plan. Discharge Plan Departure Patient Disposition: Home Clinical Impression: Pharyngitis Qualifiers: Pharyngitis/tonsillitis etiology: unspecified etiology Qualified Code(s): J02.9 - Acute pharyngitis, unspecified Instructions: Sore Throat Activity Restrictions/Additional Instructions: I do recommend that you continue with the nasal spray and the Claritin as directed. You were given a prescription for antibiotics. You can either start taking these now or you could wait for the next couple days to see if your symptoms improve. Either course of treatment is not unreasonable given your symptoms. Return to the emergency department for any new or worsening symptoms Prescriptions: New azithromycin 250 mg tablet See Rx Instructions .ROUTE .COMPLEX Qty: 6 RF: 0 No Action multivitamin Tablet 1 tab PO DAILY RF: 0 triamcinolone acetonide 0.025 % Cream 1 applic TOPICAL BID RF: 0 montelukast 10 mg Tablet 10 mg PO DAILY RF: 0 fluticasone propionate [Flonase Allergy Relief] 50 mcg/actuation [place],Suspension 2 spray INTRANASAL BID RF: 0 loratadine [Claritin] 10 mg Tablet 10 mg PO DAILY RF: 0 Referrals: Akila Rai DO [Primary Care Provider] -
[2019-09-26 09:40] VITALS: BP 115/75; PULSE 75; RESP 13; TEMP 37.1; O2SAT 100
== END 2019-09-26 09:59 | disposition home or self-care (01) ==
PROVIDERS: Emergency Provider Emergency Medicine; PCP Family Medicine
DX: J02.9 Acute pharyngitis, unspecified (principal)
CPT/HCPCS: 87880; 99282; 99283